=== PATIENT | female | born 1985 | race Caucasian/White ===

== ENCOUNTER 2018-08-17 09:39 | Emergency (ER) | payer SELFPAY ==
[~2018-08-17] VITALS: Ht 165.1 cm; Wt 65.0 kg
[2018-08-17 10:07] VITALS: BP 109/74
--- NOTE | 2018-08-17 10:41 | NUR ---
to tr 02. gown given. oriented to room.
[2018-08-17] MEDS ORDERED: HYDROcodone/APAP 5/325 TABLET ONE (11:17)
--- NOTE | 2018-08-17 11:24 | NUR ---
ASSUMED CARE OF PT. PT GIVEN NORCO. PT THEN STATING THAT SHE IS WALKIN HOME AND IS 5 MINUTES AWAY FROM HOUSE. PT WANTING TO LEAVE. DISCUSSED POSSIBLE DROWSINESS OF NORCO. PT UP AMBULATORY AND STABLE ON FEET.
[2018-08-17] MEDS ORDERED: HYDROcodone/APAP 5/325 TABLET PO ONE (11:30)
== END 2018-08-17 11:27 | disposition home or self-care (01) ==
LOC: ED 11:00
DX: K08.89 Other specified disorders of teeth and supporting structures (principal); F17.200 Nicotine dependence, unspecified, uncomplicated
CPT/HCPCS: 99283

== ENCOUNTER 2018-08-29 11:17 | Emergency (ER) | payer SELFPAY ==
[~2018-08-29] VITALS: Ht 162.6 cm; Wt 62.0 kg
[2018-08-29 11:24] VITALS: BP 102/67
--- NOTE | 2018-08-29 11:31 | NUR ---
FIRST CONTACT WITH PT. PT STATES "I WAS HERE A WEEK AGO FOR DENTAL INFECTION, AND IT'S BACK. I ALSO HAVE RIGHT HIP PAIN FROM A WORK INJURY. IT HAPPENED SUNDAY." PT'S AOX4. RESPS EVEN AND UNLABORED. AWAITING ORDERES.
[2018-08-29] MEDS ORDERED: KETOROLAC 30 MG/1 ML IM ONE (12:30)
--- NOTE | 2018-08-29 12:35 | NUR ---
PT IN XRAY NOW.
[2018-08-29] MEDS ORDERED: KETOROLAC 30 MG/1 ML ONE (12:36)
--- NOTE | 2018-08-29 12:46 | NUR ---
PT MEDICATED PER EMAR. PT TOLERATED WELL.
--- NOTE | 2018-08-29 13:49 | NUR ---
Patient given discharge instructions and they have confirmed that they understand the instructions. Patient ambulatory with steady gait.
== END 2018-08-29 13:50 | disposition home or self-care (01) ==
LOC: ED 12:44
DX: S76.011A Strain of muscle, fascia and tendon of right hip, initial encounter (principal); K02.9 Dental caries, unspecified; F17.200 Nicotine dependence, unspecified, uncomplicated; X50.1XXA Overexertion from prolonged static or awkward postures, initial encounter; Y93.89 Activity, other specified; Y92.89 Other specified places as the place of occurrence of the external cause; Y99.8 Other external cause status
CPT/HCPCS: 73502; 96372; 99283; J1885